=== PATIENT | female | born 2000 | race Caucasian/White ===

== ENCOUNTER → 2022-06-13 16:28 | Outpatient (CLI) | payer BC, SELFPAY ==
[2022-06-13 18:51] LABS: HCG,Quantitative 19216 mIU/ml (0-5.42)
== END ==
PROVIDERS: Visit Provider Obstetrics & Gynecology
DX: Z32.00 Encounter for pregnancy test, result unknown (principal); N92.6 Irregular menstruation, unspecified
CPT/HCPCS: 36415; 84702

== ENCOUNTER → 2022-06-22 09:27 | Outpatient (CLI) | payer BC, SELFPAY ==
[2022-06-22 09:55] LABS: Basophils # 0.2 K/mm3 (0-0.2); Eosinophils # 0.1 K/mm3 (0.0-0.4); Eosinophils % 0.3 % (0.1-12.0); Hematocrit 39.1 % (37.0-47.0); Hemoglobin 12.8 g/dL (12.2-16.2); Lymphocytes # 1.4 K/mm3 (0.7-4.5); Lymphocytes % 9.3 % (10-50); Mean Corpuscular HGB Conc 32.9 g/dL (31.8-35.4); Mean Corpuscular Hemoglobin 31.2 pg (27.0-31.2); Mean Corpuscular Volume 95.1 fl (81-99); Mean Platelet Volume 9.7 fl (7.4-10.4); Monocytes # 0.5 K/mm3 (0.1-1.0); Monocytes % 3.3 % (1.7-9.3); Neutrophils # 13.1 K/mm3 (1.8-7.8); Neutrophils % 86.1 % (37.0-80.0); Platelet Count 250 K/mm3 (142-424); Red Blood Count 4.11 M/mm3 (4.20-5.40); Red Cell Distribution Width 13.4 % (11.5-17.5); White Blood Count 15.2 K/mm3 (4.5-13.0)
[2022-06-22 10:01] LABS: MANUAL DIFFERENTIAL MANUAL DIFFERENTIAL (MANUAL DIFF)
[2022-06-22 11:04] LABS: Lymphocytes % 11 % (10-50); Monocytes % 3 % (2-9); Neutrophils % 85 % (42-76); Platelet Estimate Normal; RBC Morphology Normal; Total Cells Counted 100
[2022-06-22 17:48] LABS: Amphetamine/Metha Screen,Urine Negative ng/ml (<1000)
[2022-06-22 17:49] LABS: Barbiturates Screen,Urine Negative ng/ml (<200)
[2022-06-22 17:50] LABS: Benzodiazepines Screen,Urine Negative ng/ml (<200); Cannabinoid Screen,Urine Negative ng/ml (<50)
[2022-06-22 17:51] LABS: Cocaine Screen,Urine Negative ng/ml (<300); Methadone Screen,Urine Negative ng/ml (<300)
[2022-06-22 17:52] LABS: Opiate Screen,Urine Negative ng/ml (<300)
[2022-06-22 17:53] LABS: Phencyclidine Screen,Urine Negative ng/ml (<25)
[2022-06-23 12:20] LABS: HIV Screen 4th Generation wRfx Non Reactive (Non Reactive); Rapid Plasma Reagin Ab Titer Non Reactive (NonRea<1:1); Rubella Antibodies, IgG <0.90 index (Immune >0.99)
[2022-06-25 22:12] LABS: Hepatitis B Surface Antigen NEGATIVE; Hepatitis C Antibody 0.2
[2022-06-26 21:12] LABS: Neisseria gonorrhoeae, NAA Negative (Negative)
== END ==
PROVIDERS: Visit Provider Obstetrics & Gynecology
DX: Z34.90 Encounter for supervision of normal pregnancy, unspecified, unspecified trimester (principal)
CPT/HCPCS: 36415; 80305; 85007; 85025; 86593; 86703; 86762; 86850; 87086; 87088; 87186; 87340; 87380; 87491; 87591; G0432

== ENCOUNTER → 2022-09-21 12:27 | Outpatient (CLI) | payer BC, SELFPAY ==
--- NOTE | 2022-09-21 12:28 | US_ITS ---
FINAL REPORT CLINICAL HISTORY: 20 week anatomy scan please use anatomy template FINDINGS: There is a single live intrauterine gestation. Presentation is breech. The cervix is closed and measures 5.1 cm. Placenta is posterior. movement is noted. Heart rate is detected at 146 beats per minute. Three-vessel cord with satisfactory umbilical cord insertion. Four-chamber heart is noted. brain and ventricles are unremarkable. Chest and diaphragm are unremarkable. ABDOMEN: Both kidneys are unremarkable. Stomach is unremarkable. SPINE: No anomalies identified. Both arms and legs noted. AMNIOTIC FLUID: Appropriate amount. MEASUREMENTS: ULTRASOUND AGE: 21 weeks 1 day. GESTATION AGE: 20 weeks 6 days. ESTIMATED WEIGHT: 414 g GROWTH PERCENTILE: 69 % BPD: 4.84 cm corresponding to 20 weeks 5 days. OFD: 6.66 cm corresponding to 22 weeks 0 days. HC: 18.29 cm corresponding to 20 weeks 5 days. AC: 15.60 cm corresponding to 26 weeks 6 days. FL: 3.80 cm corresponding to 22 weeks 2 days. CEREBELLUM: 2.27 cm corresponding to 22 weeks 4 days. HUMERUS: 3.64 cm corresponding to 22 weeks 5 days. HC/AC: 1.17 CI: 73% FL/BPD: 79% FL/AC: 24% IMPRESSION: Single living IUP with an ultrasound age of 21 weeks 1 day. Reviewed, Interpreted and Dictated by Laurie Arambula MD Transcribed by Marielos Schofield Authenticated and [facility]
== END ==
PROVIDERS: PCP Obstetrics & Gynecology; Visit Provider Obstetrics & Gynecology
DX: Z34.90 Encounter for supervision of normal pregnancy, unspecified, unspecified trimester (principal); Z3A.20 20 weeks gestation of pregnancy
CPT/HCPCS: 76811

== ENCOUNTER → 2022-11-02 09:49 | Outpatient (CLI) | payer BC, MEDICAID, SELFPAY ==
[2022-11-02 11:56] LABS: Anion Gap 13.3 mEq/L (5-15); Blood Urea Nitrogen 7 mg/dl (7-17); Calcium 8.7 mg/dl (8.4-10.2); Carbon Dioxide 27 mmol/L (22.0-30.0); Chloride 99 mmol/L (98-107); Estimated Glomerular Filt Rate 157 ml/min (>60); GFR (African American) 190 ML/MIN (>60); Glucose 84 mg/dl (74-100); Magnesium 1.7 mg/dl (1.6-2.3); Potassium 4.3 mmoL/L (3.5-5.1); Sodium 135 mmol/L (136-145)
[2022-11-02 12:12] LABS: Free Thyroxine Index 2.8 ug/dL (5.93-13.13); T4 (Thyroxine) 12.8 ug/dl (5.53-11.0); Triiodothryronine (T3) Uptake 22 % (23.5-40.5)
[2022-11-02 12:26] LABS: Thyroid Stimulating Hormone 0.97 uIU/mL (0.465-4.68)
== END ==
PROVIDERS: Visit Provider Physician Assistant
DX: R00.0 Tachycardia, unspecified (principal)
CPT/HCPCS: 36415; 80048; 83735; 84436; 84443; 84479; 93306

== ENCOUNTER → 2022-11-09 09:16 | Outpatient (CLI) | payer BC, SELFPAY ==
[2022-11-09 10:02] LABS: Basophils # 0.1 K/mm3 (0-0.2); Basophils % 0.4 % (0.1-2.0); Eosinophils # 0.2 K/mm3 (0.0-0.4); Eosinophils % 1.1 % (0.1-12.0); Hematocrit 39.4 % (37.0-47.0); Lymphocytes # 2.6 K/mm3 (0.7-4.5); Lymphocytes % 19.3 % (10-50); Mean Corpuscular HGB Conc 33.1 g/dL (31.8-35.4); Mean Corpuscular Hemoglobin 30.9 pg (27.0-31.2); Mean Corpuscular Volume 93.5 fl (81-99); Mean Platelet Volume 10.3 fl (7.4-10.4); Monocytes # 0.5 K/mm3 (0.1-1.0); Monocytes % 3.8 % (1.7-9.3); Neutrophils # 10.1 K/mm3 (1.8-7.8); Neutrophils % 75.3 % (37.0-80.0); Platelet Count 214 K/mm3 (142-424); Red Blood Count 4.21 M/mm3 (4.20-5.40); Red Cell Distribution Width 13.8 % (11.5-17.5); White Blood Count 13.4 K/mm3 (4.5-13.0)
[2022-11-09 11:15] LABS: Glucose,Fasting 78 mg/dl (74-100)
[2022-11-09 12:45] LABS: Glucose 1 Hour 128 mg/dL (74-100)
== END ==
PROVIDERS: Visit Provider Obstetrics & Gynecology
DX: Z34.90 Encounter for supervision of normal pregnancy, unspecified, unspecified trimester (principal); Z3A.28 28 weeks gestation of pregnancy
CPT/HCPCS: 36415; 82951; 85025

== ENCOUNTER 2022-11-30 10:19 | Emergency (ER) | payer BC, MEDICAID, SELFPAY ==
[2022-11-30 10:20] VITALS: BP 138/91; PULSE 120; RESP 18; TEMP 37.2; O2SAT 100; BMI 43.7
--- NOTE | 2022-11-30 10:25 | ECG_ITS ---
APPROVED REPORT Exam: Resting ECG HR:116 bpm ECG Measurements Heart Rate 116 AXES GA 133 P 26 QRSd 80 QRS 55 QT 305 T 29 QTc 374 Conclusion SINUS TACHYCARDIA Left atrial abnormality MODERATE ST DEPRESSION [0.05+ mV ST DEPRESSION] ABNORMAL ECG UNCONFIRMED REPORT Electronically signed by : Gordon Lee MD 12/01/2022 10:41:17
--- NOTE | 2022-11-30 10:27 | PC.NURSE ---
DR HARRIS AT BEDSIDE
--- NOTE | 2022-11-30 10:27 | PC.NURSE ---
PERICO ARGUELLES at
--- NOTE | 2022-11-30 10:27 | PC.NURSE ---
Dr. Beltran at
[2022-11-30 10:29] VITALS: BP 138/91; PULSE 107; O2SAT 98
--- NOTE | 2022-11-30 10:30 | PC.NURSE ---
F[facility] 156, PT REPORTS +FM
--- NOTE | 2022-11-30 10:31 | XR_ITS ---
FINAL REPORT CLINICAL HISTORY: Chest discomfort, 31 weeks COMPARISON: None FINDINGS: No acute pulmonary opacity is present. There is no evidence of effusion or pneumothorax. Mediastinum is unremarkable. Heart size is normal. IMPRESSION: No acute abnormality. Reviewed, Interpreted and Dictated by Laila Resendiz MD Transcribed by Jess Santa Authenticated and [facility]
--- NOTE | 2022-11-30 10:32 | HMH.EDCP ---
Discharge Plan Disposition Patient Disposition: Home, Self-Care Chief Complaint: Arrhythmia/Palpitations Prescriptions Prescriptions: No Action clindamycin-benzoyl peroxide 1.2 %(1 % base) -5 % gel topical Label Comments: 1 APPLICATION TO AFFECTED AREA EXTERNALLY ONCE A DAY 30 DAYS DHA 200 mg capsule PO Referrals Follow up/Referrals: Provider,Referral, [Primary Care Provider] - See instructions Activity Restrictions/Add. Instructions Additional Instructions/Restrictions: Continue taking all medications as prescribed. Return to the emergency department if you feel worse in any way. I suspect that your chest discomfort may be due to reflux disease. You may consider some [id number] Tums to see whether the symptoms improve. Keep all follow-up appointments as scheduled. Your work-up today in the emergency department did not show any life-threatening or dangerous conditions. Clinical Impressions Clinical Impression: Sinus tachycardia Instructions Patient Instructions: DI for Tachycardia Discharge ED Provider: Vihdi Beltran Chest Pain HPI General Chief Complaint: Arrhythmia/Palpitations Stated Complaint: 31 weeks preg, elevated hr Time Seen by Provider: 11/30/22 10:25 History of Present Illness HPI narrative: The patient presents to the emergency department complaining of a 3-week history of central chest tightness. She is 31 weeks . She was seen by her certified flex endoscope reprocessor earlier today and sent to the emergency department for tachycardia. She denies shortness of breath. She denies chest pain. She denies any pleuritic chest pain. She denies lower leg pain. She denies having had pulmonary emboli or DVTs in the past. She used to smoke but has stopped smoking since she found out she is . She denies any drug use. She uses clindamycin as a topical cream for her face and takes vitamins. She takes no other medications. Related Data Home Medications Medication Instructions Recorded Confirmed clindamycin 1.2 % (1 % g topical 06/22/22 11/30/22 base)-benzoyl peroxide 5 % topical gel docosahexaenoic acid 200 mg mg PO 06/22/22 11/30/22 capsule ( DHA) Allergies Allergy/AdvReac Type Severity Reaction Status Date / Time house dust Allergy Unknown Verified 11/30/22 09:44 pollen extracts Allergy Unknown Verified 11/30/22 09:44 [facility] Disclaimer: The information contained in this section may have been updated after the patient was seen, as this information can be updated by other users. Medical History Asthma affecting , antepartum GBS bacteriuria Will require Ampicillin for prophylaxis in labor Maternal obesity affecting , antepartum Rubella non-immune status, antepartum Screening for genetic disease carrier status 07/20/22 - [facility] carrier screen is negative for 14 conditions tested, including CF, Fragile x and SMA Size of fetus inconsistent with dates in third trimester Tachycardia Surgical History Hx of wisdom tooth extraction Family History Other Diabetes Social History Smoking Status: Former smoker alcohol intake: never substance use type: denies use current occupational status: employed Travel in the last 8 weeks: None ROS Obtained: Yes All systems reviewed & no additional complaints except as documented Physical Exam General General appearance: alert and anxious Head Head exam: atraumatic Eye Eye exam: Present normal appearance ENT ENT exam: Present normal exam Neck Neck exam: Present normal inspection and full ROM; Absent tenderness or meningismus Chest Chest inspection: Present normal inspection and symmetric chest wall rise; Absent tenderness Respiratory
--- NOTE | 2022-11-30 10:46 | PC.NURSE ---
XR AT BEDSIDE
[2022-11-30 10:51] LABS: Basophils % 0.3 % (0.1-2.0); Eosinophils # 0.1 K/mm3 (0.0-0.4); Eosinophils % 1.1 % (0.1-12.0); Hematocrit 38.6 % (37.0-47.0); Hemoglobin 12.7 g/dL (12.2-16.2); Lymphocytes # 2.1 K/mm3 (0.7-4.5); Lymphocytes % 17.1 % (10-50); Mean Corpuscular HGB Conc 32.9 g/dL (31.8-35.4); Mean Corpuscular Hemoglobin 29.8 pg (27.0-31.2); Mean Corpuscular Volume 90.6 fl (81-99); Mean Platelet Volume 10.1 fl (7.4-10.4); Monocytes # 0.5 K/mm3 (0.1-1.0); Monocytes % 4.2 % (1.7-9.3); Neutrophils # 9.6 K/mm3 (1.8-7.8); Neutrophils % 77.3 % (37.0-80.0); Platelet Count 219 K/mm3 (142-424); Red Blood Count 4.26 M/mm3 (4.20-5.40); Red Cell Distribution Width 13.6 % (11.5-17.5); White Blood Count 12.5 K/mm3 (4.5-13.0)
[2022-11-30 10:57] LABS: Chloride 104 mmol/L (98-107)
[2022-11-30 10:58] LABS: Potassium 3.9 mmoL/L (3.5-5.1); Sodium 133 mmol/L (136-145)
[2022-11-30 11:00] LABS: Alanine Aminotransferase 20 U/L (12-78); Albumin Level 3.6 g/dl (3.5-5.0); Albumin/Globulin Ratio 1.1 (1.1-1.8); Alkaline Phosphatase 93 U/L (38-126); Anion Gap 8.9 mEq/L (5-15); Aspartate Amino Transferase 28 U/L (14-36); Bilirubin,Total 0.5 mg/dl (0.2-1.3); Blood Urea Nitrogen 5 mg/dl (7-17); Carbon Dioxide 24 mmol/L (22.0-30.0); Creatinine Clearance Estimated 155 mL/min (50-200); Estimated Glomerular Filt Rate 157 ml/min (>60); GFR (African American) 190 ML/MIN (>60); Globulin 3.3 g/dL (1.3-3.2); Glucose 94 mg/dl (74-100); Total Protein,Serum 6.9 g/dl (6.3-8.2)
[2022-11-30 11:01] VITALS: BP 128/75; PULSE 101; O2SAT 97
[2022-11-30 11:01] LABS: Calcium 8.6 mg/dl (8.4-10.2)
--- NOTE | 2022-11-30 11:04 | PC.NURSE ---
ROUNED ON PT, NO NEEDS AT THIS TIME. HR 105 AT THIS TIME
--- NOTE | 2022-11-30 11:10 | PC.NURSE ---
DR HARRIS AT BEDSIDE TO UPDATE PT
[2022-11-30 11:18] VITALS: BP 128/75; PULSE 105; RESP 18; TEMP 37.1; O2SAT 97
== END 2022-11-30 11:20 | disposition home or self-care (01) ==
PROVIDERS: Emergency Provider Emergency Medicine
DX: O99.413 Diseases of the circulatory system complicating pregnancy, third trimester (principal); R00.0 Tachycardia, unspecified; Z3A.31 31 weeks gestation of pregnancy; O99.213 Obesity complicating pregnancy, third trimester; Z87.891 Personal history of nicotine dependence
CPT/HCPCS: 71045; 80053; 85025; 93005; 96360; 99284; 99285

== ENCOUNTER → 2022-12-14 09:41 | Outpatient (CLI) | payer BC, MEDICAID, SELFPAY ==
--- NOTE | 2022-12-14 09:41 | US_ITS ---
PROCEDURE: US OB BIOPHYSICAL PROFILE CLINICAL INDICATION: growth and CLEMENTE COMPARISON: FINDINGS: From her established due date she is 32weeks 6days. The following parameters are obtained: Fetus is in the cephalic presentation with a posterior placenta grade 2. Average ultrasound age is 34weeks 4days. Estimated due date by ultrasound is 01/21/2023. Estimated weight is 5lb 4 oz, 2,375 grams. 82Percentile. heart rate: 156bpm bpm. BPD: 34weeks 1day OFD: 34weeks 1day HC: 34 weeks 0 days AC: 33 weeks 3 days FL: 35 weeks 5 days HC/AC: 1.04 Cephalic index: 0.8 FL/BPD: 0.81 FL/AC: 0.24 Amniotic fluid index: 9.71cm Qualitative AFV: 2 breathing movements: 2 Gross body movements: 2 Tone: 2 Biophysical profile score: 8 No obvious anomalies evident.Kidneys, three-vessel cord appear normal. Four-chamber view seen. Profile appears normal. IMPRESSION: 1. Fetus in the cephalic presentation with a posterior grade 2. The fluid is within normal limits. SUBJECTIVELY THE FLUID SEEMS ON THE LOW SIDE. 2. There has been good interval growth. 3. THE FETUS IS ALMOST 2 WEEKS AHEAD ON ITS GROWTH AND IS 82 PERCENTILE. 4. Biophysical profile is 8/8 with good breathing movement seen. Dictated by: Valeriy Snowden MD 12/15/2022 14:45 Valeriy Snowden MD in OV 12/15/2022 14:45
== END ==
PROVIDERS: Visit Provider Obstetrics & Gynecology
DX: O28.8 Other abnormal findings on antenatal screening of mother (principal); O36.63X0 Maternal care for excessive fetal growth, third trimester, not applicable or unspecified; Z3A.32 32 weeks gestation of pregnancy
CPT/HCPCS: 76816; 76819

== ENCOUNTER → 2022-12-27 14:01 | Outpatient (CLI) | payer BC, MEDICAID, SELFPAY ==
[2022-12-27 14:48] LABS: Basophils % 0.2 % (0.1-2.0); Eosinophils # 0.1 K/mm3 (0.0-0.4); Eosinophils % 0.6 % (0.1-12.0); Hematocrit 36.9 % (37.0-47.0); Hemoglobin 12.1 g/dL (12.2-16.2); Lymphocytes # 2.3 K/mm3 (0.7-4.5); Lymphocytes % 16.1 % (10-50); Mean Corpuscular HGB Conc 32.7 g/dL (31.8-35.4); Mean Corpuscular Hemoglobin 29.2 pg (27.0-31.2); Mean Corpuscular Volume 89.2 fl (81-99); Mean Platelet Volume 10.6 fl (7.4-10.4); Monocytes # 0.6 K/mm3 (0.1-1.0); Monocytes % 4.4 % (1.7-9.3); Neutrophils # 11.4 K/mm3 (1.8-7.8); Neutrophils % 78.7 % (37.0-80.0); Platelet Count 213 K/mm3 (142-424); Red Blood Count 4.14 M/mm3 (4.20-5.40); Red Cell Distribution Width 13.9 % (11.5-17.5); White Blood Count 14.5 K/mm3 (4.5-13.0)
[2022-12-27 15:13] LABS: Chloride 106 mmol/L (98-107)
[2022-12-27 15:14] LABS: Sodium 133 mmol/L (136-145)
[2022-12-27 15:16] LABS: Alanine Aminotransferase 21 U/L (12-78); Alkaline Phosphatase 120 U/L (38-126); Aspartate Amino Transferase 29 U/L (14-36); Bilirubin,Total 0.3 mg/dl (0.2-1.3); Blood Urea Nitrogen 5 mg/dl (7-17); Carbon Dioxide 23 mmol/L (22.0-30.0); Estimated Glomerular Filt Rate 157 ml/min (>60); GFR (African American) 190 ML/MIN (>60)
[2022-12-27 15:17] LABS: Albumin Level 3.3 g/dl (3.5-5.0); Albumin/Globulin Ratio 1.1 (1.1-1.8); Calcium 8.8 mg/dl (8.4-10.2); Globulin 2.9 g/dL (1.3-3.2); Glucose 101 mg/dl (74-100); Total Protein,Serum 6.2 g/dl (6.3-8.2)
== END ==
PROVIDERS: Visit Provider Obstetrics & Gynecology
DX: O16.3 Unspecified maternal hypertension, third trimester (principal)
CPT/HCPCS: 80053; 85025

== ENCOUNTER → 2022-12-29 09:32 | Outpatient (CLI) | payer BC, MEDICAID, SELFPAY ==
[2022-12-29 13:49] LABS: Collection Time,Urine 24 hours; Total Volume,Urine 1500 mL (600-1600)
[2022-12-29 14:05] LABS: Total Protein 24 Hour,Urine 360 mg/24 hr (40-90)
[2022-12-29 14:08] LABS: Creatinine 24 Hour,Urine 1650 mg/24hr (630-2500)
[2022-12-29 14:09] LABS: Creatinine,Urine Random 110 mg/dL (Not Estab.)
[2022-12-29 14:14] LABS: Patient Weight,Urine 246 lbs
[2022-12-29 14:15] LABS: Creatinine Clearance Urine 186.2 mL/min (25-115); Patient Height,Urine 64 inches
== END ==
PROVIDERS: Visit Provider Obstetrics & Gynecology
DX: O16.3 Unspecified maternal hypertension, third trimester (principal); Z3A.35 35 weeks gestation of pregnancy
CPT/HCPCS: 36415; 82575; 84155

== ENCOUNTER → 2023-01-03 23:16 | Outpatient (CLI) | payer BC, MEDICAID, SELFPAY | PROVIDERS: Visit Provider Nurse Practitioner Obstetrics & Gynecology | DX: Z34.93 Encounter for supervision of normal pregnancy, unspecified, third trimester (principal); Z3A.35 35 weeks gestation of pregnancy | CPT/HCPCS: 86403 ==

== ENCOUNTER → 2023-01-10 08:21 | Outpatient (CLI) | payer BC, MEDICAID, SELFPAY ==
--- NOTE | 2023-01-10 08:21 | US_ITS ---
PROCEDURE: US OB BIOPHYSICAL PROFILE CLINICAL INDICATION: lga/ low fluid COMPARISON: 12/14/2022. FINDINGS: From her established due date she is 36weeks 5days. The following parameters are obtained: Viable fetus in the cephalic presentation. Posterior placenta grade 2. Average ultrasound age is 38weeks 2days. Estimated due date by ultrasound is 01/22/2023. Estimated weight is 7lb 9 oz, 3425 grams. 89percentile. heart rate: 149bpm bpm. BPD: 38weeks 2days OFD: 38weeks 2days HC: 37 weeks 3 days AC: 38 weeks 1 day FL: 38 weeks 4 days HC/AC: 0.96 Cephalic index: 0.84 FL/BPD: 0.79 FL/AC: 0.22 Amniotic fluid index: 11.08cm Qualitative AFV: 2 breathing movements: 2 Gross body movements: 2 Tone: 2 Biophysical profile score: 8 No obvious anomalies evident.Kidneys, three-vessel cord appear normal. IMPRESSION: 1. Viable fetus in the cephalic presentation with a posterior placenta grade 2. 2. The fetus continues to show accelerated growth concurrently 89 percentile. 3. The fluid is within normal limits with an amniotic fluid index of 11.1 cm. 4. Biophysical profile 01/29 with good breathing movement seen. Dictated by: Valeriy Snowden MD 01/11/2023 08:20 Valeriy Snowden MD in [facility] 01/11/2023 08:20
== END ==
LOC: RAD 08:21
PROVIDERS: Visit Provider Nurse Practitioner Obstetrics & Gynecology
DX: O28.8 Other abnormal findings on antenatal screening of mother (principal); O36.63X0 Maternal care for excessive fetal growth, third trimester, not applicable or unspecified; Z3A.36 36 weeks gestation of pregnancy
CPT/HCPCS: 76816; 76819

== ENCOUNTER 2023-02-01 05:01 | Inpatient (IN) | payer BC, MEDICAID, SELFPAY ==
[2023-02-01 05:11] VITALS: BMI 45.6
[2023-02-01 05:35] VITALS: BP 135/79; PULSE 117; RESP 18; TEMP 36.8; O2SAT 97; BMI 45.6
[2023-02-01 05:43] LABS: Microscopic, Urine URINE MICROSCOPIC (MICROSCOPIC)
[2023-02-01 05:45] LABS: Basophils # 0.1 K/mm3 (0-0.2); Basophils % 0.5 % (0.1-2.0); Eosinophils # 0.1 K/mm3 (0.0-0.4); Eosinophils % 0.9 % (0.1-12.0); Hematocrit 37.6 % (37.0-47.0); Hemoglobin 12.3 g/dL (12.2-16.2); Lymphocytes # 2.7 K/mm3 (0.7-4.5); Lymphocytes % 22.6 % (10-50); Mean Corpuscular HGB Conc 32.8 g/dL (31.8-35.4); Mean Corpuscular Hemoglobin 29.4 pg (27.0-31.2); Mean Corpuscular Volume 89.8 fl (81-99); Mean Platelet Volume 12.2 fl (7.4-10.4); Monocytes # 0.5 K/mm3 (0.1-1.0); Monocytes % 4.1 % (1.7-9.3); Neutrophils # 8.7 K/mm3 (1.8-7.8); Neutrophils % 71.9 % (37.0-80.0); Platelet Count 196 K/mm3 (142-424); Red Blood Count 4.18 M/mm3 (4.20-5.40); Red Cell Distribution Width 14.3 % (11.5-17.5); White Blood Count 12.1 K/mm3 (4.5-13.0)
[2023-02-01 05:47] LABS: Appearance,Urine CLEAR (Clear); Bilirubin,Urine Negative (Negative); Blood, Urine Negative (Negative); Color,Urine YELLOW (Yellow); Glucose,Urine (UA) Negative (Negative); Ketones,Urine Negative (Negative); Leukocyte Esterase,Urine Negative (Negative); Nitrate,Urine Negative (Negative); Protein,Urine TRACE (Negative); Specific Gravity, Urine >= 1.030 (1.005-1.030); Urobilinogen,Urine 0.2 EU/dl (0.2)
[2023-02-01 05:58] LABS: Amphetamine/Metha Screen,Urine Negative ng/ml (<1000); Benzodiazepines Screen,Urine Negative ng/ml (<200)
[2023-02-01 05:59] LABS: Barbiturates Screen,Urine Negative ng/ml (<200)
[2023-02-01 06:00] LABS: Cannabinoid Screen,Urine Negative ng/ml (<50); Cocaine Screen,Urine Negative ng/ml (<300)
[2023-02-01 06:01] LABS: Methadone Screen,Urine Negative ng/ml (<300)
[2023-02-01 06:02] LABS: Opiate Screen,Urine Negative ng/ml (<300); Phencyclidine Screen,Urine Negative ng/ml (<25)
[2023-02-01 06:04] LABS: Bacteria,Urine 2+ /lpf
--- NOTE | 2023-02-01 08:20 | EXP.OB.APHP ---
OB - H&P: HPI Antepartum History of Present Illness Chief complaint: Scheduled elective induction of labor History of present illness: Ms Negrita Aaron is a 22 yo at 39w6d who presents to [facility] Delivery for scheduled elective induction of labor. Baby is active. She admits to irregular contractions. She has had good care. Growth ultrasound 01/10/23 demonstrated EFW 89 %ile. History of Present Criteria for establishing EDC:: based on 1st trimester US only care: good care Ultrasounds: normal mid trimester US Obstetrical complications: none Medical complications: none Labs Blood type: O (+) positive Rubella: nonimmune RPR/VDRL: nonreactive GBS status: positive (GBS bactiuria on initial urine culture) HBsAG: negative PFSH PFS Disclaimer: The information contained in this section may have been updated after the patient was seen, as this information can be updated by other users. Medical History (Updated 02/01/23 @ 10:49 by Cassandra Barroso DO) 39 weeks gestation of Asthma affecting , antepartum Encounter for elective induction of labor GBS bacteriuria Maternal obesity affecting , antepartum Rubella non-immune status, antepartum Screening for genetic disease carrier status Size of fetus inconsistent with dates in third trimester Tachycardia Surgical History Hx of wisdom tooth extraction Family History Other Diabetes Social History Smoking Status: Former smoker alcohol intake: never substance use type: denies use current occupational status: employed Travel in the last 8 weeks: None Review of Systems Review of Systems Review of systems:: pertinent systems reviewed and negative unless documented below Meds Home Medications and Allergies Home Medications Medication Instructions Recorded Confirmed Type No Known Home Medications 02/01/23 02/01/23 History New Prescriptions to Start Prescriptions: Allergies Allergy/AdvReac Type Severity Reaction Status Date / Time house dust Allergy Unknown Verified 01/30/23 16:27 pollen extracts Allergy Unknown Verified 01/30/23 16:27 OB - H&P: Exam Physical Exam Vital signs: Temp Pulse Resp BP Pulse Ox O2 Del Method 98.3 F 117 H 18 135/79 97 Room Air 02/01/23 05:35 02/01/23 05:35 02/01/23 05:35 02/01/23 05:35 02/01/23 05:35 02/01/23 05:35 Constitutional no acute distress Routine HEENT Exam Head: Present normocephalic and atraumatic Eye: Absent conjunctivae pink ENT: Present mucous membranes moist and dentition normal Routine Neck Exam Present full ROM Routine Respiratory Exam Present CTA bilaterally and normal respiratory effort Routine Cardiovascular Exam Present RRR Routine Abdominal Exam Present soft (Gravid); Absent tenderness Routine Rectal Exam Patient deferred: visual exam Routine Exam External: Present normal urethra appearance; Absent tenderness, lesions or lacerations Routine Extremities Exam Present edema (+1 bilateral lower extremity edema) and full ROM; Absent calf tenderness Routine Neurological Exam Present alert, oriented X3 and moving all extremities Routine Psychiatric Exam Present normal affect and cooperative Detailed Labor and Delivery Exam Dilation (cm): 1 Effacement (%): 40 Cervix position: anterior station: -3 Consistency: medium Membranes: intact Baseline heart rate: 130 monitor accelerations: Present monitor decelerations: None 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
[2023-02-01 08:40] VITALS: BP 127/83; PULSE 84; RESP 18; TEMP 36.8; O2SAT 96
[2023-02-01 13:40] VITALS: BP 137/85; PULSE 86; RESP 20; TEMP 36.6; O2SAT 98
[2023-02-01 17:55] VITALS: BP 119/59; PULSE 85; RESP 18; TEMP 36.6; O2SAT 93
[2023-02-02] VITALS (8 sets, daily range): BP systolic 100–157; BP diastolic 60–100; PULSE 74–88; RESP 12–50; TEMP 36.4; O2SAT 99–100
--- NOTE | 2023-02-02 10:14 | EXP.LABOR.NO ---
Labor Note Subjective: Date: 02/02/23 Time: 10:14 Comment:: Uncomfortable without epidural Objective: Contractions:: every 2-3 minutes Cervical Dilation:: 2 Effacement:: 60% Station: -2 Membranes: spontaneously ruptured (0250) Fetus: Monitoring?: Yes monitoring type:: External Assessment: Labor progressing?: No Problems: (1) Encounter for elective induction of labor: Category: Medical Code(s): Z34.90 - Encounter for supervision of normal , unspecified, unspecified trimester (2) Size of fetus inconsistent with dates in third trimester: Category: Medical Code(s): O26.843 - Uterine size-date discrepancy, third trimester (3) Maternal obesity affecting , antepartum: Qualifiers: Obesity type affecting : unspecified obesity Qualified Code(s): O99.210 - Obesity complicating , unspecified trimester Category: Medical Code(s): O99.210 - Obesity complicating , unspecified trimester (4) Asthma affecting , antepartum: Category: Medical Code(s): O99.519 - Diseases of the respiratory system complicating , unspecified trimester; J45.909 - Unspecified asthma, uncomplicated (5) GBS bacteriuria: Problem Comment: Will require Ampicillin for prophylaxis in labor Category: Medical Code(s): R82.71 - Bacteriuria (6) Rubella non-immune status, antepartum: Category: Medical Code(s): O09.899 - Supervision of other high risk pregnancies, unspecified trimester; Z28.39 - Other underimmunization status Plan: Anesthesia for epidural?: Yes Additional information:: Javad was made to proceed with two day induction of labor on 02/01/23. On 02/01/23 patient received 2 doses of cytotec with minimal cervical changed by 1500 (02/01/23). After second dose of Cytotec decision was made for two day induction. She had a break from induction between 1530 and 1700. Patient had early supper during this time. Cervidil was then placed around 1730. Cervidil was removed the morning of 02/02/23. Pitocin was started at 0640 (02/02/23). Pitocin is currently at 2 units. Cervical exam is 2/60/-2 with moulding noted. Patient received Stadol this morning for pain control. Decision was made to proceed with epidural. Will continue to monitor at this time.
--- NOTE | 2023-02-02 11:14 | EXP.ANES.CKL ---
[facility] Disclaimer: The information contained in this section may have been updated after the patient was seen, as this information can be updated by other users. Medical History (Updated 02/01/23 @ 10:49 by Cassandra Barroso DO) 39 weeks gestation of Asthma affecting , antepartum Encounter for elective induction of labor GBS bacteriuria Maternal obesity affecting , antepartum Rubella non-immune status, antepartum Screening for genetic disease carrier status Size of fetus inconsistent with dates in third trimester Tachycardia Surgical History Hx of wisdom tooth extraction Family History Other Diabetes Social History Smoking Status: Former smoker alcohol intake: never substance use type: denies use current occupational status: employed Travel in the last 8 weeks: None [facility] Anesthesia Checklist Patient Identification Patient Identification: Verbal (Name & ) Structural Data Admitted From: Inpatient Planned Operative Procedure/s: labor epidural Consent for Planned Operative Procedure(s) Verified: Yes Airway Assessment Mallampati Score:: Class I C-Spine Mobility Assessed: Yes TMJ Mobility Assessed: Yes Dentition: Good Dentition Neurological Assessment Level of Consciousness: Awake, Alert and Appropriate Anesthesia Plan Anesthesia Risk discussed: Yes Anesthesia Plan: Verified ASA Class: II Anesthesia Type: Epidural
--- NOTE | 2023-02-02 11:42 | EXP.LABOR.NO ---
Labor Note Subjective: Date: 02/02/23 Time: 11:42 Comment:: Comfortable with epidural Objective: NST:: Reactive Cervical Dilation:: 2-3 Effacement:: 60% Station: -2 Membranes: spontaneously ruptured Fetus: monitoring type:: Internal and External Assessment: Labor progressing?: No Problems: (1) 39 weeks gestation of : Category: Medical Code(s): Z3A.39 - 39 weeks gestation of (2) Encounter for elective induction of labor: Category: Medical Code(s): Z34.90 - Encounter for supervision of normal , unspecified, unspecified trimester (3) Size of fetus inconsistent with dates in third trimester: Category: Medical Code(s): O26.843 - Uterine size-date discrepancy, third trimester (4) Maternal obesity affecting , antepartum: Qualifiers: Obesity type affecting : unspecified obesity Qualified Code(s): O99.210 - Obesity complicating , unspecified trimester Category: Medical Code(s): O99.210 - Obesity complicating , unspecified trimester (5) Asthma affecting , antepartum: Category: Medical Code(s): O99.519 - Diseases of the respiratory system complicating , unspecified trimester; J45.909 - Unspecified asthma, uncomplicated (6) GBS bacteriuria: Problem Comment: Will require Ampicillin for prophylaxis in labor Category: Medical Code(s): R82.71 - Bacteriuria (7) Rubella non-immune status, antepartum: Category: Medical Code(s): O09.899 - Supervision of other high risk pregnancies, unspecified trimester; Z28.39 - Other underimmunization status Plan: Continue to monitor?: Yes Additional information:: Increase pitocin per protocol IUPC inserted without difficulty Close monitoring
--- NOTE | 2023-02-02 16:12 | P.PN_ITS ---
Labor Note Subjective: Date: 02/02/23 Time: 16:12 Comment:: Uncomfortable with epidural. She admits to feeling pain in RLQ quadrant. Objective: Contractions:: every 2-3 minutes Cervical Dilation:: 4 Effacement:: 70% Station: -2 Membranes: spontaneously ruptured (0250 on 02/02/23) Fetus: Monitoring?: Yes monitoring type:: Internal and External Assessment: Labor progressing?: No Cephalopelvic disproportion?: Yes Problems: (1) 39 weeks gestation of : Category: Medical Code(s): Z3A.39 - 39 weeks gestation of (2) Encounter for elective induction of labor: Category: Medical Code(s): Z34.90 - Encounter for supervision of normal , unspecified, unspecified trimester (3) Cephalopelvic disproportion due to mixed maternal and factors: Category: Medical Code(s): O33.4XX0 - Maternal care for disproportion of mixed maternal and origin, not applicable or unspecified (4) Failure to progress in labor: Category: Medical Code(s): O62.2 - Other uterine inertia (5) Maternal obesity affecting , antepartum: Qualifiers: Obesity type affecting : unspecified obesity Qualified Code(s): O99.210 - Obesity complicating , unspecified trimester Category: Medical Code(s): O99.210 - Obesity complicating , unspecified trimester (6) Asthma affecting , antepartum: Category: Medical Code(s): O99.519 - Diseases of the respiratory system complicating , unspecified trimester; J45.909 - Unspecified asthma, uncomplicated (7) GBS bacteriuria: Problem Comment: Will require Ampicillin for prophylaxis in labor Category: Medical Code(s): R82.71 - Bacteriuria (8) Rubella non-immune status, antepartum: Category: Medical Code(s): O09.899 - Supervision of other high risk pregnancies, unspecified trimester; Z28.39 - Other underimmunization status Plan: Plan for ?: Yes Additional information:: Cervical exam with minimal climate change risk assessor 4.5 hours and significant head molding. Cervical exam /-2. IUPC demonstrated adequate MVUs. Pitocin reached 10 units. Discussion of failure to progress and cephalopelvic disproportion discussed with patient and her family. Decision was made to proceed with primary for CPD and failure to progress. Discussed risks, benefits, alternatives, expectations and possible complications of surgery. All questions addressed and answered. Patient voiced understanding of risks and possible complications. Consent form signed. Proceed with primary
--- NOTE | 2023-02-02 16:51 | PC.NURSE ---
1605 Notified by Shraddha in OB that surgery team was needed for Csection on patient. Dr Bhakta is needed as well. [phone] Yury returned call [phone] Jeff returned call [phone] Veena returned call [phone] Dr Bhakta returned call.
[2023-02-02 17:28] LABS: Cord Blood PH 7.27 (7.35-7.45)
--- NOTE | 2023-02-02 18:15 | EXP.OP.NOTE ---
Date of procedure: 02/02/23 Pre-op Diagnosis:: 1. IUP at 40w0d 2. Elective induction of labor 3. Maternal obesity 4. Cephalopelvic disproportion 5. Failure to progress Post-op Diagnosis:: 1. IUP at 40w0d 2. Elective induction of labor 3. Maternal obesity 4. Cephalopelvic disproportion 5. Failure to progress Procedure performed:: Primary Low Transverse Section Surgeon:: Cassandra Barroso DO Nurse Researcher(s):: Nolan Bhakta MD [employer]:: Yury Pino Anesthesia: spinal Estimated blood loss (mL): 700 Clinical Note:: Ms Negrita Aaron is a 22 yo at 39w6d who presents to [facility] Delivery for scheduled elective induction of labor. Baby is active. She admits to irregular contractions. She has had good care. Growth ultrasound 01/10/23 demonstrated EFW 89 %ile. She underwent two day induction of labor with Cytotec the morning of 02/02/12 with no cervical change. She was given a break to rest and eat. Cervidil was then inserted the evening of 02/02/12 and removed the morning of 02/02/23. Spontaneous rupture of membranes occurred at 0250 on 02/02/23. Pitocin was started at 0640 on 02/02/23. She progressed to 4/70/-2 with minimal cervical exchange architect several hours. IUPC was in place and ensured adequate MVUs. Pitocin reached 10. molding was first noted at cervical exam 2/60/-2. Decision was made to proceed with primary secondary to cephalopelvic disproportion and failure to progress. Operative findings:: 1. Live male baby (baby's name is Marco) weighing 8 lb 14 oz, APGARs 8, 9 2. Nuchal cord x 4 3. Grossly normal appearing uterus, bilateral fallopian tubes and ovaries Operative note:: The risks, benefits and alternatives of the procedure were reviewed with the patient. Informed consent was obtained. Patient was taken to the operating room where epidural was removed and spinal anesthesia was placed. The patient received 2 grams of Ancef preoperatively. Patient was placed in dorsal supine position with a leftward tilt. SCDs in place. Hicks catheter had been placed and was draining clear urine prior to the start of the procedure. heart tones were obtained. Vagina was prepped with Betadine swabs x 3. Patient was then prepped and draped in normal sterile fashion. Allis clamp test was performed to ensure adequate anesthesia. A Pfannenstiel skin incision was made 2 cm above pubic symphysis. This was carried through to underlying layer of fascia. Fascia was incised in midline, extended laterally with Negrete scissors. Superior aspect of fascial incision was grasped with two Joselito clamps, elevated up, and rectus muscle dissected off bluntly and sharply with Negrete scissors. The retcus muscle was then in the midline and the peritoneum was entered bluntly with a digit. Peritoneal incision was then extended superiorly and inferiorly with good visualization of the bladder. Jimbo retractor was inserted. The lower uterine segment was incised in a transverse fashion. Head was delivered without difficulty. Nuchal x 4 was easily reduced. Remainder of body was delivered without difficulty. Mouth and nares were bulb suctioned. Spontaneous cry was noted. Delayed cord clamping was performed for 60 seconds. The umbilical cord was clamped and cut. The was handed to awaiting pediatric staff in stable condition. Dr. Ruff was present. Apgars were 8(1 min), 9(5 min). Section of cord was collected for cord gases. Cord blood was obtained. Gentle traction on the umbilical cord and uterine fundal massage delivered the placenta. Placenta was intact. Uterus was cleared of all clots and debris with a moist laparotomy sponge. Corners of the uterine incision were grasped with Allis clamps. The uterine incision was reapproximated with # 1 Vicryl suture in a running, locked stitch. Second layer of the same stitch was used to imbricate the incision. Vesicouterine peritoneum was reapproximated in a running locked stitch with 0-Vicryl suture. Karenas
--- NOTE | 2023-02-02 18:20 | EXP.ANES.I ---
[facility] Anesthesia Record Part I Anesthesia Record I Intake, IV Amount: 1,600 Hydration: Adequate Estimated blood loss (mL): 700 Urine output (mL): 300 Blood Pressure: 100/60 SaO2: 100 Pulse Rate: 77 Airway Patency: Patent Respiratory Rate: 12 Temperature: 97.5 F Pain scale (0-10): 0 Nausea: No Vomiting: No Patient is:: Awake and Stable Stable to PACU at:: 18:15
--- NOTE | 2023-02-02 18:46 | SUR.PHASEI ---
1819- pt has QBL >1000 at this time. notified of this by rachelle wakefield. Another IV placed, 2 units PRBC's on hold, Q5min vitals completed, methergine already given in the OR. No further orders at this time, Continue to monitor. 1844- detailed report called to rachelle Fang in OB 1845- pt left in stable condition in pt room, dressings cdi, VSS
--- NOTE | 2023-02-03 07:08 | EXP.ANES.I ---
[facility] Anesthesia Record Part I Anesthesia Record I Intake, IV Amount: 1,400 Hydration: Adequate Estimated blood loss (mL): 100 Urine output (mL): 300 Blood Pressure: 139/86 SaO2: 96 Pulse Rate: 96 Airway Patency: Patent Respiratory Rate: 12 Temperature: 97.7 F Pain scale (0-10): 0 Nausea: No Vomiting: No Patient is:: Drowsy and Stable Stable to PACU at:: 07:05
[2023-02-03 07:09] VITALS: BP 139/86; PULSE 96; RESP 12; TEMP 36.5; O2SAT 96
[2023-02-03 07:32] LABS: Basophils % 0.2 % (0.1-2.0); Eosinophils # 0.1 K/mm3 (0.0-0.4); Eosinophils % 0.6 % (0.1-12.0); Hematocrit 35.8 % (37.0-47.0); Hemoglobin 11.4 g/dL (12.2-16.2); Lymphocytes # 1.8 K/mm3 (0.7-4.5); Lymphocytes % 12.5 % (10-50); Mean Corpuscular HGB Conc 31.8 g/dL (31.8-35.4); Mean Corpuscular Hemoglobin 29.1 pg (27.0-31.2); Mean Corpuscular Volume 91.4 fl (81-99); Mean Platelet Volume 11.3 fl (7.4-10.4); Monocytes # 0.6 K/mm3 (0.1-1.0); Monocytes % 4.5 % (1.7-9.3); Neutrophils # 11.7 K/mm3 (1.8-7.8); Neutrophils % 82.2 % (37.0-80.0); Platelet Count 152 K/mm3 (142-424); Red Blood Count 3.92 M/mm3 (4.20-5.40); Red Cell Distribution Width 14.5 % (11.5-17.5); White Blood Count 14.3 K/mm3 (4.5-13.0)
--- NOTE | 2023-02-03 10:43 | EXP.ACUTE.PN ---
Subjective *Date: 02/03/23 *Time: 10:43 Interval history: POD # 1 s/p PLTCS Negrita is resting comfortably in bed. Pain controlled with medication. She is breast and supplemental formula feeding. Appropriate lochia. Hicks catheter removed but she had not yet voided. Passing flatus. Tolerating regular diet. Ambulating well ad rip. Denies fever/chills, chest pain and shortness of breath. No lightheadedness/dizziness or headaches. Admits to mild bilateral foot swelling. Medical Exam Vital signs and Labs for Last 24 Hours: Vital Signs Temp Pulse Pulse Resp BP BP Pulse Ox 02/02/23 18:45 97.5 F L 81 20 137/85 100 02/02/23 18:40 97.5 F L 74 36 H 143/90 H 100 02/02/23 18:35 97.5 F L 74 15 154/97 H 100 02/02/23 18:30 97.5 F L 78 20 157/96 H 99 02/02/23 18:25 97.5 F L 80 15 156/100 H 100 02/02/23 18:20 97.5 F L 88 27 H 154/97 H 99 02/02/23 18:15 97.5 F L 88 50 H 157/96 H 99 02/03/23 07:09 97.7 F 96 H 12 139/86 02/02/23 18:21 97.5 F L 77 12 100/60 L O2 Del Method 02/02/23 18:45 Room Air 02/02/23 18:40 Room Air 02/02/23 18:35 Room Air 02/02/23 18:30 Room Air 02/02/23 18:25 Room Air 02/02/23 18:20 Room Air 02/02/23 18:15 Room Air 02/03/23 07:09 02/02/23 18:21 Intake and Output 02/02/23 02/03/23 02/03/23 23:59 07:59 15:59 Intake Total 1600 / 1600 1400 / 1400 Balance 1600 / 1600 1400 / 1400 Intake: Intake, Total IV Amount 1600 / 1600 1400 / 1400 Laboratory Results - last 24 hr 02/01/23 05:30: Blood Type O Positive, Antibody Screen Negative, Crossmatch ([facility]) See Detail 02/02/23 17:27: Cord ABG pH 7.27 L 08/13/23 07:00: WBC 14.3 H, RBC 3.92 L, Hgb 11.4 L, Hct 35.8 L, MCV 91.4, MCH 29.1, MCHC 31.8, RDW 14.5, Plt Count 152, MPV 11.3 H, Neut % (Auto) 82.2 H, Lymph % (Auto) 12.5, [place] % (Auto) 4.5, Eos % (Auto) 0.6, Baso % (Auto) 0.2, Neut # (Auto) 11.7 H, Lymph # (Auto) 1.8, [place] # (Auto) 0.6, Eos # (Auto) 0.1, Baso # (Auto) 0.0 I & O for Labs for Last 24 Hours: Intake & Output 01/31/23 02/01/23 02/02/23 02/03/23 23:59 23:59 23:59 23:59 Intake Total 1600 / 1600 1400 / 1400 Balance 1600 / 1600 1400 / 1400 Weight 266 lb Microbiology Reports for the Last 24 Hours: Microbiology 02/01/23 05:10 Urine,Clean Catch Urine Culture - Final NO GROWTH AFTER 48 HOURS Constitutional: Present no acute distress Head: Present atraumatic and normocephalic ENT: Present normal exam and mucous membranes moist Neck: Present full ROM Respiratory: Present CTA bilaterally and normal respiratory effort Cardiac: Present Reg Rate and Rhythm GI: Present soft and normal bowel sounds; Absent distention or tenderness Comments:: Uterine fundus firm and below umbilicus; pfannenstiel incision clean/dry/intact with steri strips present Rectal (female): Present deferred (female): Present deferred Extremities: Present full ROM and edema (+1 bilateral lower extremity edema); Absent calf tenderness Neuro: Present alert, awake, oriented x 3 and moves all extremities Assessment and Plan *Assessment and plan (1) 39 weeks gestation of : Status: Acute Category: Medical Code(s): Z3A.39 - 39 weeks gestation of (2) Encounter for elective induction of labor: Status: Acute Category: Medical Code(s): Z34.90 - Encounter for supervision of normal , unspecified, unspecified trimester (3) Failure to progress in labor: Status: Acute Category: Medical Code(s): O62.2 - Other uterine inertia (4) Cephalopelvic disproportion due to mixed maternal and factors: Status: Acute Category: Medical Code(s): O33.4XX0 - Maternal care for disproportion of mixed maternal and origin, not applicable or unspecified (5) Maternal obesity affecting , antepartum: Status: Acute Qualifiers: Obesity type affecting pr
[2023-02-04 08:00] VITALS: BP 128/77; PULSE 88; RESP 18; TEMP 36.5; O2SAT 99
--- NOTE | 2023-02-04 08:33 | EXP.DC.SUM ---
General Admission date:: 02/01/23 Discharge date: 02/04/23 HPI HPI HPI: POD # 2 s/p PLTCS Sitting comfortably in bed. Pain was controlled. She is breast feeding. Light lochia. Voiding without difficulty and passing flatus. Tolerating regular diet. Denies fever/chills, chest pain and shortness of breath. No dizziness/lightheadedness or headaches. Admits to lower extremity swelling. Ambulating well ad rip. Hospital Course Hospital Course Hospital Course: Ms Negrita Aaron is a 22 yo at 39w6d who presented to [facility] Delivery for scheduled elective induction of labor. She has had good care. Growth ultrasound 01/10/23 demonstrated EFW 89 %ile. She underwent two day induction of labor with Cytotec the morning of 12 with no cervical change. She was given a break to rest and eat. Cervidil was then inserted the evening of 12 and removed the morning of 02/02/23. Spontaneous rupture of membranes occurred at 0250 on 02/02/23. Pitocin was started at 0640 on 02/02/23. She progressed to 4/70/-2 with minimal cervical change booth attendant several hours. IUPC was in place and ensured adequate MVUs. Pitocin reached 10. molding was first noted at cervical exam 2/60/-2. Decision was made to proceed with primary secondary to cephalopelvic disproportion and failure to progress. She underwent primary on 02/02/23. She delivered a live male baby (Sa'vier) weighing 8 lb 14 oz. APGARs 8, 9. EBL 700 mL. Baby was found to have nuchal cord x 4 upon delivery of head. QBL 1155 mL. She did well postoperatively/. She is breast feeding. Pain controlled. Light lochia. She received Venofer 200 mg IV x 1 dose on POD # 1. She was voiding without difficulty and passing flatus. Tolerating regular diet. Ambulating well ad rip. Vital signs stable, afebrile. Heart regular rate and rhythm. Lungs clear to auscultation. Abdomen soft, nontender. She had +1 bilateral lower extremity edema. No calf tenderness to palpation. She was discharged to home on POD # 2. Exam Data for Last 24 hours Vital signs and Labs for Last 24 Hours: Temp Pulse Resp BP Pulse Ox O2 Del Method 97.7 F 96 H 12 139/86 100 Room Air 02/03/23 07:09 02/03/23 07:09 02/03/23 07:09 02/03/23 07:09 02/02/23 18:45 02/02/23 18:45 Laboratory Results - last 24 hr 02/01/23 05:30: Crossmatch ([facility]) See Detail I & O for Last 24 hours: Intake & Output 02/01/23 02/02/23 02/03/23 02/04/23 23:59 23:59 23:59 23:59 Intake Total 1600 / 1600 1400 / 1400 Balance 1600 / 1600 1400 / 1400 Weight 266 lb Microbiology Reports for the Last 24 Hours: Microbiology 02/01/23 05:10 Urine,Clean Catch Urine Culture - Final NO GROWTH AFTER 48 HOURS Constitutional Constitutional: no acute distress *Routine HEENT Exam Head: Present normocephalic and atraumatic Eye: Absent conjunctivae pink ENT: Present mucous membranes moist and dentition normal *Routine Neck Exam Neck: Present full ROM *Routine Respiratory Exam Respiratory: Present CTA bilaterally and normal respiratory effort *Routine Cardiovascular Exam Cardiovascular: Present RRR *Routine Abdominal Exam Abdominal: Present soft and normoactive bowel sounds; Absent tenderness or distended Comments: Pfannenstiel incision clean/dry/intact *Routine Rectal Exam Patient deferred: visual exam *Routine Exam Patient deferred: external exam *Routine Extremities Exam Extremities: Present edema (+1 bilateral lower extremity edema) and full ROM; Absent calf tenderness *Routine Neurological Exam Neurological: Present alert, oriented X3 and moving all extremities Routine Psychiatric Exam Psychiatric: Present normal affect and cooperative Results Data Completed and Pending Labs on day of discharge: Labs from last 24 hours 02/01/23 05:30 Crossmatch ([facility]) See Detail DS: Diagnosis Discharge Diagnosis (1) 39 weeks gestation of : [place]
[2023-02-04 14:00] VITALS: BP 145/84; PULSE 92; RESP 20; TEMP 36.6; O2SAT 94
[2023-02-04 15:30] VITALS: BP 144/86; PULSE 95; RESP 18; TEMP 36.8; O2SAT 96
== END 2023-02-04 18:25 | disposition home or self-care (01) | DRG 787 ==
PROVIDERS: Admitting Provider Obstetrics & Gynecology; Visit Provider Obstetrics & Gynecology
PROC: 10D00Z1 Extraction of Products of Conception, Low, Open Approach (ICD-10-PCS; CPT 59514; principal; 2023-02-02 16:55)
DX: O33.9 Maternal care for disproportion, unspecified (principal); D62 Acute posthemorrhagic anemia; Z3A.40 40 weeks gestation of pregnancy; Z37.0 Single live birth; O62.0 Primary inadequate contractions; O69.81X0 Labor and delivery complicated by cord around neck, without compression, not applicable or unspecified; O99.214 Obesity complicating childbirth; O90.81 Anemia of the puerperium; Z87.891 Personal history of nicotine dependence
CPT/HCPCS: 59514; 36415; 59025; 80305; 81001; 82800; 85025; 86850; 87086; 90707; 94761; C1758; G0283; J0290; J0595; J0690; J1756; J2405

== ENCOUNTER → 2023-04-08 13:17 | Outpatient (CLI) | payer BC, MEDICAID, SELFPAY ==
[2023-04-08 16:20] LABS: Free Thyroxine Index 2.5 ug/dL (5.93-13.13); T4 (Thyroxine) 6.9 ug/dl (5.53-11.0); Triiodothryronine (T3) Uptake 36 % (23.5-40.5)
[2023-04-08 16:33] LABS: Thyroid Stimulating Hormone 0.83 uIU/mL (0.465-4.68)
== END ==
PROVIDERS: PCP Obstetrics & Gynecology; Visit Provider Obstetrics & Gynecology
DX: R79.89 Other specified abnormal findings of blood chemistry (principal)
CPT/HCPCS: 36415; 84436; 84443; 84479